=== PATIENT | female | born 1950 | race Caucasian/White ===

== ENCOUNTER 2017-01-09 18:16 | Emergency (ER) | payer MEDICARE ==
[~2017-01-09 18:16] MED LIST: ACET500CAP PO; ATROPINE SUL1 % OP; ATROVENTUD INH; ATV1 PO; B121000P IM; B121000P IM/SC; BENTYL10 PO; BISR PR; CEFT2 PO; CEFT5 PO; CENTRUM PO; CIP5 PO; COMP10B PO; COREG3 PO; DIFLUCAN; DSS PO; DUONEB INH; DUONEB PO; DURA25 TOP; EMEND80 MG OR; FERROUS SULF324 MG PO; FERROUS SULF325 M1 PO; FLEETS ENEMA REP; FLORASTOR250 MG PO; FLUCON1 PO; FLUCON150 PO; GGEXPUD PO; GLUCAGEN IM; GLUCOPHAGE1000 MG PO; GLUCOSE PO; H1 PO; HUMALOGPEN SC; HYDROCORTISO2.5 % PR; IMOD PO; JANUVIA100 MG PO; KLONO1 PO; KLONO5 PO; L20 PO; L40 PO; LEVAQUIN5T PO; LEVEMFLXPN SC; LEVEMIR SC; LEVOTHYROXIN112 MCG PO; LIPITOR40 PO; LORTAB10 PO; MACRODANTIN 10100 MG; METHOC500B PO; MIRALAXPKT PO; MOMTAB PO; MOMUD PO; MULTIPLE VIT PO; MULTIVIT/MIN PO; NEUR100 PO; NORCO1 TA2 PO; NORV5 PO; NOVOLOG SC; NOVOPEN SC; OXYCOD PO; OXYIR5 MG PO; P125 PO; PCET PO; PHENADOZ25 MG PR; PR25 PO; PRAVACHOL40 MG PO; PRED FORTE; PROTONIX PO; PROZAC PO; PROZAC40 MG PO; PULMICORT180 MCG INH; PULRESP.5 INH; PYR200 PO; ROCALTROL 0.0.25 MCG PO; ROCALTROL0.5 MCG OR; ROCALTROL0.5 MCG PO; SENTAB PO; SEROQUEL25 PO; SEROQUEL50 MG PO; STOOL SOFTEN240 MG PO; SYN1 PO; SYN112 PO; SYN125 PO; SYN88 PO; T PO; TAMIFLU PO; ULTRAM50 PO; VASOTEC10 PO; VIT D PO; VITAMIN B-121000 MC1 IM; VITAMIN D1000 UNI1 PO; VITD PO; ZOFRAN ODT4 MG PO; ZOFRAN ODT4 MG SL; ZOFRAN8 PO
== END 2017-01-09 21:42 | disposition expired ==
LOC: ER 18:16
DX: I46.9 Cardiac arrest, cause unspecified (principal); Z88.0 Allergy status to penicillin; Z88.5 Allergy status to narcotic agent; Z88.6 Allergy status to analgesic agent; Z88.1 Allergy status to other antibiotic agents; Z88.8 Allergy status to other drugs, medicaments and biological substances; Z79.4 Long term (current) use of insulin; Z79.899 Other long term (current) drug therapy
CPT/HCPCS: 99285